=== PATIENT | female | born 1960 | race Caucasian/White ===

== ENCOUNTER 2022-01-13 19:05 | Emergency (ER) | payer BC, SELFPAY ==
[2022-01-13 19:07] VITALS: BP 116/67; BP 138/70; PULSE 84; PULSE 92; RESP 16; RESP 18; TEMP 36.7; TEMP 37.2; O2SAT 96; O2SAT 98; BMI 27.4; BMI 28.9
--- NOTE | 2022-01-13 19:48 | PC.NURSE ---
WOUND CLEANED WITH ROOM TEMPERATURE STERILE WATER AND ANTIMICROBIAL SOAP, PATTED DRY. NON ADHERENT DRESSING PLACED. COVERED WITH DRY 4X4. S/S OF INFECTION EXTENSIVELY REVIEWED WITH PATIENT. PT VERBALIZES UNDERSTANDING. PT AWARE TO HAVE FOLLOW UP WITH PCP ON MONDAY.
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
[2022-01-13 20:43] VITALS: BP 138/70; PULSE 84; RESP 16; TEMP 37.2; O2SAT 98
== END 2022-01-13 20:53 | disposition home or self-care (01) ==
PROVIDERS: Emergency Provider Nurse Practitioner
DX: T24.011A Burn of unspecified degree of right thigh, initial encounter (principal); X08.8XXA Exposure to other specified smoke, fire and flames, initial encounter; Y92.019 Unspecified place in single-family (private) house as the place of occurrence of the external cause; Z23 Encounter for immunization
CPT/HCPCS: 90715; 96372; 99213; G0463

== ENCOUNTER 2024-06-09 19:45 | Emergency (ER) | payer BC, SELFPAY ==
[2024-06-09 19:46] VITALS: BP 109/77; PULSE 109; RESP 16; TEMP 36.8; O2SAT 94; BMI 22.8
--- NOTE | 2024-06-09 19:46 | ED_ITS ---
<Statement entered by Tucker Hernandez MD - 06/09/24 23:44> I was consulted by the JAVY, and we discussed the complexity of the problems being addressed. I approved the treatment and management plan for this patient's care in the emergency department, thus performing a substantive portion of the medical decision making. Tucker Hernandez MD Discharge Plan Disposition Patient Disposition: Home, Self-Care Condition: Good Prescriptions Prescriptions: No Action amoxicillin-pot clavulanate 1 EACH tablet 500 mg PO TID Qty: 21 0RF Referrals Follow up/Referrals: Provider,Basilia, [Primary Care Provider] - See instructions Activity Restrictions/Add. Instructions Additional Instructions/Restrictions: Follow-up with your PCP in 48 hours. For any worsening signs or symptoms return to the emergency department as needed. You may take Tylenol alternating with Motrin every 4 hours as needed for symptomatic relief. Clinical Impressions Clinical Impression: Multiple falls Instructions Patient Instructions: How to Prevent Falls Print Language Print Language: Georgian Discharge ED Provider: Tucker Hernandez General Adult HPI General Chief complaint: Fall Stated complaint: Fall from 4ft, off ramp, no LOC Time Seen by Provider: 06/09/24 19:46 History of Present Illness HPI narrative: Patient presents for evaluation of a reported fall. Patient states that she was walking up and wheelchair ramp at her home and fell striking her head. She reports that she did not lose consciousness but that she has back pain neck pain hip pain coccyx pain. Patient states that she also fell earlier today around 3 PM landing on her coccyx. Again patient suffered the loss of consciousness and has been ambulatory since. Patient states that she falls a lot because she had a stroke earlier this year. She denies chest pain fever chills hemoptysis hematochezia melena Related Data Previous Rx's ?Medication ?Instructions ?Recorded amoxicillin 500 mg-potassium 500 mg PO TID #21 tabs 01/13/22 clavulanate 125 mg tablet Allergies Allergy/AdvReac Type Severity Reaction Status Date / Time meloxicam [From [facility]] Allergy Unknown Verified 01/13/22 20:30 [facility] Disclaimer: The information contained in this section may have been updated after the patient was seen, as this information can be updated by other users. Social History Smoking Status: Current every day smoker alcohol intake: never current occupational status: disabled Travel in the last 8 weeks: None ROS Obtained: Yes Systems reviewed as appropriate & no additional complaints except as documented Physical Exam General General appearance: alert and in no apparent distress Respiratory Respiratory exam: Present normal lung sounds bilaterally Cardiovascular Cardiovascular exam: Present regular rate and normal rhythm Neurological Exam Neurological exam: Present alert, oriented X3 and CN II-XII intact Medical Decision Making Medical Records Medical records reviewed: Yes I reviewed the patient's medical records. Morgan Inquiry Pt receiving controlled substance: No Vital Signs: 06/09/24 19:46 06/09/24 21:37 Temperature 98.3 F 98.2 F Temperature Source Oral Pulse Rate 104 H Pulse Rate [Right Radial] 109 H Respiratory Rate 16 18 Blood Pressure 116/63 Blood Pressure [Right Arm] 109/77 L Blood Pressure Mean [Right Arm] 87 Blood Pressure Source [Right Arm] Automatic Cuff 02 Sat by Pulse Oximetry 94 L Oxygen Delivery Method Room Air Room Air Lab Data Lab results reviewed: Yes I reviewed the patient's lab results. Lab Results 06/09/24 19:51: WBC 9.5, RBC 4.07 L, Hgb 12.9, Hct 41.7, MCV 102.5 H, MCH 31.6 H , MCHC 30.9 L, RDW 14.1, Plt Count 465 H, MPV 8.0, Neut % (Auto) 71.8, Lymph % (Auto) 20.3, [place] % (Auto) 6.4, Eos % (Auto) 1.2, Baso % (Auto) 0.4, Neut # (Auto) 6.8, Lymph # (Auto) 1.9, [place] # (Auto) 0.6, Eos # (Auto) 0.1, Baso # (Auto) 0.0, Sodium 137, Potassium 3.7, Chloride 108 H, Carbon Dioxide 24, Anion Gap 8.7, BUN 16, Creatinine 1.00, Estimated Creat Clear 52, Estimated GFR 56 L, Est GFR ( Amer) 68, Glucose 104 H, Calcium 9.3, Total Bilirubin 0.5, AST 48 H, ALT 45, Alkaline Phosphatase 131 H, Total Protein 7.4, Albumin 4.2, Globulin 3.2, Albumin/Globulin Ratio 1.3, Urine Color Yellow, Urine Appearance Clear, Urine pH 7.5, Ur Specific [place] 1.010, Urine Protein Negative, Urine Glucose (UA) 2+, Urine Ketones Negative, Urine Blood Negative, Urine Nitrate Negative, Urine Bilirubin Negative, Urine Urobilinogen 0.2, Ur Leukocyte Esterase Negative, Urine Opiates Screen Negative, Urine Methadone Screen Negative, Ur Barbituates Screen Negative, Ur Phencyclidine Scrn Negative, Ur Amphetamines Screen Negative, U Benzodiazepines Scrn Negative, Urine Cocaine Screen Negative, U Marijuana (THC) Screen Negative 06/09/24 19:51 06/09/24 19:51 Orders (Tests/Meds): ED MEDICATIONS Discontinued Medications Generic Name Dose Route Start Last Admin Trade Name Luis PRN Reason Stop Dose Admin Acetaminophen 1,000 mg 06/09/24 19:54 06/09/24 20:41 Acetaminophen 1,000mg/100ml Vial IV 06/09/24 19:55 1,000 mg ONCE ONE Administration Lactated Ringer's 1,000 mls @ 999 mls/hr 06/09/24 19:54 06/09/24 20:41 Lactated Ringer's 1000 Ml Bag IV 06/09/24 20:54 999 mls/hr .Q1H1M ONE Administration ORDERS Category Date Time Status CT angio abdomen pelvis Stat Cat Scan 06/09/24 19:[address] angio chest - dissection Stat Cat Scan 06/09/24 19:[address] angio head Stat Cat Scan 06/09/24 19:[address] angio neck Stat Cat Scan 06/09/24 19:[address] bony pelvis Stat Cat Scan 06/09/24 19:[address] cervical spine wo con Stat Cat Scan 06/09/24 19:[address] facial bones wo con Stat Cat Scan 06/09/24 19:[address] head/brain wo con Stat Cat Scan 06/09/24 19:[address] lumbar spine wo con Stat Cat Scan 06/09/24 19:[address] thoracic spine wo con Stat Cat Scan 06/09/24 19:54 Completed CBC w/Auto Diff [Complete Blood Count Auto Diff] Stat Lab 06/09/24 19:51 Completed CMP [Comprehensive Metabolic Panel] Stat Lab 06/09/24 19:51 Completed UA [Urinalysis and Microscopic] Stat Lab 06/09/24 19:51 Results UDS [Drug Screen,Urine] Stat Lab 06/09/24 19:51 Completed Medical Decision Narrative: In summary patient is a 63-year-old female who presents to the emergency department for evaluation of reported fall. Patient is hemodynamically stable upon arrival, afebrile. Physical exam is remarkable for no evidence of visible trauma anywhere although it is objective reports of pain and just about everywhere I touch of her dorsal spine forehead left hip. Patient is neurovascularly intact with no focal neurologic deficits and moves all 4 extremities. Coma score is 15.. Differential diagnosis includes contusion versus fracture versus intercranial bleed etc. Initial workup will be conducted with hematologic labs CT scan without contrast of the head C-spine T-spine L- spine lumbar spine and CTA of the head neck chest abdomen pelvis and bony pelvis. Urinalysis urine drug screen.. Initial interventions include acetaminophen crystalloid bolus. Initial workup reviewed by me shows her hematologic labs are nonactionable urinalysis is bland and urine drug screen is negative and my informal interpretation of her imaging shows no acute fracture or acute process prior to radiology read on all of her imaging.. Upon repeat evaluation remains with a Glascow coma score 15 is ambulatory with her cane tolerating oral intake.. Given this patient is appropriate for discharge with instructions to follow-up with PCP this week for recheck. Patient given strict return precautions. Critical Care Critical Care Time Critical Care Time: No
--- NOTE | 2024-06-09 19:54 | CT_ITS ---
PROCEDURE INFORMATION: Exam: CT Head Without Contrast Exam date and time: 06/09/2024 8:20 PM Age: 63 years old Clinical indication: Injury or trauma; Fall; Additional info: Trauma, critical injury suspected TECHNIQUE: Imaging protocol: Computed tomography of the head without contrast. Radiation optimization: All CT scans at this facility use at least one of these dose optimization techniques: automated exposure control; mA and/or kV adjustment per patient size (includes targeted exams where dose is matched to clinical indication); or iterative reconstruction. COMPARISON: CT CERVICAL SPINE WO CON 06/09/2024 8:20 PM FINDINGS: Brain: Encephalomalacia and gliosis left occipital lobe consistent with old infarct. There are moderate bilateral periventricular low-attenuation white matter foci consistent with cerebral small vessel disease. Cerebral ventricles: No ventriculomegaly. Paranasal sinuses: Visualized sinuses are unremarkable. No fluid levels. Mastoid air cells: Partial opacification of the left mastoid air cells and middle ear cavity. Could be related to pre-existing sinus disease. Bones: No definite fractures. Soft tissues: Unremarkable. IMPRESSION: 1. Partial opacification of the left mastoid air cells and middle ear cavity. Could be related to pre-existing sinus disease. No definite fractures. 2. Encephalomalacia and gliosis left occipital lobe consistent with old infarct. 3. No acute intracranial process is identified.
--- NOTE | 2024-06-09 19:54 | CT_ITS ---
PROCEDURE INFORMATION: Exam: CTA Neck With Contrast Exam date and time: 06/09/2024 8:34 PM Age: 63 years old Clinical indication: Injury or trauma; Fall; Additional info: Trauma, critical injury suspected TECHNIQUE: Imaging protocol: Computed tomographic angiography of the neck with contrast. Exam focused on the cervical segments of the vasculature. 3D rendering (Not supervised by radiologist): MIP and/or 3D reconstructed images were created by the technologist. Radiation optimization: All CT scans at this facility use at least one of these dose optimization techniques: automated exposure control; mA and/or kV adjustment per patient size (includes targeted exams where dose is matched to clinical indication); or iterative reconstruction. Contrast material: ISOVUE; Contrast volume: 80 ml; Contrast route: INTRAVENOUS (IV); COMPARISON: CT ANGIO NECK 06/09/2024 8:34 PM FINDINGS: Right common carotid artery: No stenosis. No dissection or occlusion. Right internal carotid artery: No stenosis of the extracranial segment. No dissection or occlusion. Right external carotid artery: No occlusion or stenosis of the origin. Left common carotid artery: No stenosis. No dissection or occlusion. Left internal carotid artery: No stenosis of the extracranial segment. No dissection or occlusion. Left external carotid artery: No occlusion or stenosis of the origin. Right vertebral artery: No stenosis. No dissection or occlusion. Left vertebral artery: No stenosis. No dissection or occlusion. Soft tissues: Normal. No significant soft tissue swelling. Bones/joints: No acute fracture. IMPRESSION: No stenosis or occlusion. REFERENCES: NASCET CRITERIA. The degree of stenosis in the cervical segment of the internal carotid artery is based on NASCET criteria. Normal is no stenosis. Mild is less than 50% stenosis. Moderate is 50-69% stenosis. Severe is 70% to 99% stenosis. Total occlusion is no detectable patent lumen.
--- NOTE | 2024-06-09 19:54 | CT_ITS ---
PROCEDURE INFORMATION: Exam: CTA Chest With Contrast Exam date and time: 06/09/2024 8:37 PM Age: 63 years old Clinical indication: Injury or trauma; Fall; Additional info: Trauma, critical injury suspected TECHNIQUE: Imaging protocol: Computed tomographic angiography of the chest with contrast. Exam focused on the arteries. 3D rendering (Not supervised by radiologist): MIP and/or 3D reconstructed images were created by the technologist. Radiation optimization: All CT scans at this facility use at least one of these dose optimization techniques: automated exposure control; mA and/or kV adjustment per patient size (includes targeted exams where dose is matched to clinical indication); or iterative reconstruction. Contrast material: ISOVUE; Contrast volume: 80 ml; Contrast route: INTRAVENOUS (IV); COMPARISON: CT ANGIO ABDOMEN PELVIS 06/09/2024 8:37 PM FINDINGS: Pulmonary arteries: Normal. No pulmonary emboli. Aorta: Unremarkable. No aortic aneurysm. No aortic dissection. Lungs: Unremarkable. No consolidation. No masses. Pleural spaces: Unremarkable. No pneumothorax. No pleural effusion. Heart: Unremarkable. No cardiomegaly. No pericardial effusion. Lymph nodes: Unremarkable. No enlarged lymph nodes. Bones/joints: Old left 9th rib fracture. No acute fracture. Soft tissues: Unremarkable. IMPRESSION: No acute findings.
--- NOTE | 2024-06-09 19:54 | CT_ITS ---
PROCEDURE INFORMATION: Exam: CT Cervical Spine Without Contrast Exam date and time: 06/09/2024 8:20 PM Age: 63 years old Clinical indication: Injury or trauma; Fall; Additional info: Trauma, critical injury suspected TECHNIQUE: Imaging protocol: Computed tomography of the cervical spine without contrast. Radiation optimization: All CT scans at this facility use at least one of these dose optimization techniques: automated exposure control; mA and/or kV adjustment per patient size (includes targeted exams where dose is matched to clinical indication); or iterative reconstruction. COMPARISON: CT CERVICAL SPINE WO CON 06/09/2024 8:20 PM FINDINGS: Bones: No acute fracture. Normal alignment. No significant disc bulge or herniation. No severe spinal canal stenosis. No significant neural foraminal narrowing. Mastoid air cells: Partially visualized left mastoid air cells consistent with sinus disease. Auditory system: Mucosal thickening within the middle ear cavity . Lungs: Lung apices are normal. Soft tissues: Unremarkable. IMPRESSION: 1. Partially visualized left mastoid air cells consistent with sinus disease. Mucosal thickening within the middle ear cavity . 2. No acute abnormalities are identified.
--- NOTE | 2024-06-09 19:54 | CT_ITS ---
PROCEDURE INFORMATION: Exam: CTA Abdomen and Pelvis With Contrast Exam date and time: 06/09/2024 8:37 PM Age: 63 years old Clinical indication: Injury or trauma; Fall; Additional info: Trauma, critical injury suspected TECHNIQUE: Imaging protocol: Computed tomographic angiography of the abdomen and pelvis with contrast. Exam focused on the arteries. 3D rendering (Not supervised by radiologist): MIP and/or 3D reconstructed images were created by the technologist. Radiation optimization: All CT scans at this facility use at least one of these dose optimization techniques: automated exposure control; mA and/or kV adjustment per patient size (includes targeted exams where dose is matched to clinical indication); or iterative reconstruction. Contrast material: ISOVUE; Contrast volume: 80 ml; Contrast route: INTRAVENOUS (IV); COMPARISON: CT ANGIO ABDOMEN PELVIS 06/09/2024 8:37 PM FINDINGS: Aorta: No aortic aneurysm. No aortic dissection. Mild atherosclerotic calcification. Celiac trunk and mesenteric arteries: No occlusion or significant stenosis. Renal arteries: No occlusion or significant stenosis. Right iliac arteries: No occlusion or significant stenosis. Mild atherosclerotic calcification. Left iliac arteries: No occlusion or significant stenosis. Mild atherosclerotic calcification. Liver: Fatty infiltration. Measures 19 cm. No mass. Gallbladder and biliary ducts: Gallbladder not visualized. Pancreas: Unremarkable. No mass. No ductal dilation. Spleen: Unremarkable. No splenomegaly. Adrenal glands: Unremarkable. No mass. Kidneys and ureters: 0.7 cm left renal cyst. No solid mass. No hydronephrosis. Stomach and bowel: Unremarkable. No obstruction. No mucosal thickening. Appendix: Not visualized. Intraperitoneal space: Unremarkable. No free air. No significant fluid collection. Lymph nodes: Unremarkable. No enlarged lymph nodes. Urinary bladder: Unremarkable. No mass. Reproductive: Unremarkable as visualized. Bones/joints: No acute fracture. Soft tissues: Unremarkable. IMPRESSION: 1. Unremarkable CTA. 2. Hepatomegaly with fatty infiltration.
--- NOTE | 2024-06-09 19:54 | CT_ITS ---
PROCEDURE INFORMATION: Exam: CT Thoracic Spine Without Contrast Exam date and time: 06/09/2024 8:25 PM Age: 63 years old Clinical indication: Injury or trauma; Fall; Additional info: Trauma, critical injury suspected TECHNIQUE: Imaging protocol: Computed tomography of the thoracic spine without contrast. Radiation optimization: All CT scans at this facility use at least one of these dose optimization techniques: automated exposure control; mA and/or kV adjustment per patient size (includes targeted exams where dose is matched to clinical indication); or iterative reconstruction. COMPARISON: CT THORACIC SPINE WO CON 06/09/2024 8:25 PM FINDINGS: Bones/joints: No acute fracture. Normal alignment. No significant disc bulge or herniation. No severe spinal canal stenosis. No significant neural foraminal narrowing. Soft tissues: Unremarkable. IMPRESSION: Unremarkable CT Spine.
--- NOTE | 2024-06-09 19:54 | CT_ITS ---
PROCEDURE INFORMATION: Exam: CTA Head With Contrast, Arteriography Exam date and time: 06/09/2024 8:34 PM Age: 63 years old Clinical indication: Injury or trauma; Fall; Additional info: Trauma, critical injury suspected TECHNIQUE: Imaging protocol: Computed tomographic angiography of the head with contrast. Exam focused on the arteries. 3D rendering (Not supervised by radiologist): MIP and/or 3D reconstructed images were created by the technologist. Radiation optimization: All CT scans at this facility use at least one of these dose optimization techniques: automated exposure control; mA and/or kV adjustment per patient size (includes targeted exams where dose is matched to clinical indication); or iterative reconstruction. Contrast material: ISOVUE; Contrast volume: 80 ml; Contrast route: INTRAVENOUS (IV); COMPARISON: CT HEAD/BRAIN WO CON 06/09/2024 8:20 PM FINDINGS: ANTERIOR CIRCULATION: Right internal carotid artery: Intracranial segment is patent with no significant stenosis. No aneurysm. Right middle cerebral artery: No occlusion or significant stenosis. No aneurysm. Right anterior cerebral artery: No occlusion or significant stenosis. No aneurysm. Left internal carotid artery: Intracranial segment is patent with no significant stenosis. No aneurysm. Left middle cerebral artery: No occlusion or significant stenosis. No aneurysm. Left anterior cerebral artery: No occlusion or significant stenosis. No aneurysm. POSTERIOR CIRCULATION: Right vertebral artery: No occlusion or significant stenosis. No aneurysm. Left vertebral artery: No occlusion or significant stenosis. No aneurysm. Basilar artery: No occlusion or significant stenosis. No aneurysm. Right posterior cerebral artery: No occlusion or significant stenosis. No aneurysm. Left posterior cerebral artery: No occlusion or significant stenosis. No aneurysm. Brain: No definite mass, mass effect, or midline shift. Old infarct left occipital lobe Cerebral ventricles: No ventriculomegaly. Bones/joints: Unremarkable. No acute fracture. Soft tissues: Unremarkable. IMPRESSION: No large vessel stenosis or occlusion.
--- NOTE | 2024-06-09 19:54 | CT_ITS ---
PROCEDURE INFORMATION: Exam: CT Lumbar Spine Without Contrast Exam date and time: 06/09/2024 8:27 PM Age: 63 years old Clinical indication: Injury or trauma; Fall; Additional info: Trauma, critical injury suspected TECHNIQUE: Imaging protocol: Computed tomography of the lumbar spine without contrast. Radiation optimization: All CT scans at this facility use at least one of these dose optimization techniques: automated exposure control; mA and/or kV adjustment per patient size (includes targeted exams where dose is matched to clinical indication); or iterative reconstruction. COMPARISON: CT LUMBAR SPINE WO CON 06/09/2024 8:27 PM FINDINGS: Bones/joints: No acute fracture. Normal alignment. Multilevel degenerative disc and joint space changes most pronounced at L4/5 and L5/S1. Osteopenia. Vertebral bodies grossly preserved. Soft tissues: Unremarkable. IMPRESSION: No acute findings.
--- NOTE | 2024-06-09 19:56 | CT_ITS ---
PROCEDURE INFORMATION: Exam: CT Maxillofacial Without Contrast Exam date and time: 06/09/2024 8:23 PM Age: 63 years old Clinical indication: Injury or trauma; Fall; Additional info: Trauma, critical injury suspected TECHNIQUE: Imaging protocol: Computed tomography of the face without contrast. Radiation optimization: All CT scans at this facility use at least one of these dose optimization techniques: automated exposure control; mA and/or kV adjustment per patient size (includes targeted exams where dose is matched to clinical indication); or iterative reconstruction. COMPARISON: CT HEAD/BRAIN WO CON 06/09/2024 8:20 PM FINDINGS: Orbital cavities: Orbits are normal. Globes are unremarkable. Paranasal sinuses: Normal. No air-fluid levels. Bones: No acute fracture. Soft tissues: Unremarkable. IMPRESSION: No acute findings.
--- NOTE | 2024-06-09 19:56 | CT_ITS ---
PROCEDURE INFORMATION: Exam: CT Pelvis Without Contrast, Skeleton Exam date and time: 06/09/2024 8:29 PM Age: 63 years old Clinical indication: Injury or trauma; Fall; Additional info: Trauma, critical injury suspected TECHNIQUE: Imaging protocol: Computed tomography of the pelvis without contrast. Exam focused on the skeleton. Radiation optimization: All CT scans at this facility use at least one of these dose optimization techniques: automated exposure control; mA and/or kV adjustment per patient size (includes targeted exams where dose is matched to clinical indication); or iterative reconstruction. COMPARISON: CT LUMBAR SPINE WO CON 06/09/2024 8:27 PM FINDINGS: Bones/joints: Unremarkable. No acute fracture. No dislocation. Degenerative changes of both hips, sacroiliac joints and lumbosacral spine. Osteopenia. Soft tissues: Unremarkable. IMPRESSION: No acute findings.
[2024-06-09 20:06] LABS: Chloride 108 mmol/L (98-107)
[2024-06-09 20:07] LABS: Albumin Level 4.2 g/dl (3.5-5.0); Potassium 3.7 mmoL/L (3.5-5.1); Sodium 137 mmol/L (136-145)
[2024-06-09 20:09] LABS: Alanine Aminotransferase 45 U/L (12-78); Alkaline Phosphatase 131 U/L (38-126); Anion Gap 8.7 mEq/L (5-15); Aspartate Amino Transferase 48 U/L (14-36); Bilirubin,Total 0.5 mg/dl (0.2-1.3); Blood Urea Nitrogen 16 mg/dl (7-17); Carbon Dioxide 24 mmol/L (22.0-30.0); Creatinine Clearance Estimated 52 mL/min (50-200); Estimated Glomerular Filt Rate 56 ml/min (>60); GFR (African American) 68 ML/MIN (>60)
--- NOTE | 2024-06-09 20:09 | PC.NURSE ---
pt out of room with Rad for CT
[2024-06-09 20:10] LABS: Albumin/Globulin Ratio 1.3 (1.1-1.8); Calcium 9.3 mg/dl (8.4-10.2); Globulin 3.2 g/dL (1.3-3.2); Glucose 104 mg/dl (74-100); Total Protein,Serum 7.4 g/dl (6.3-8.2)
[2024-06-09 20:21] LABS: Basophils % 0.4 % (0.1-2.0); Eosinophils # 0.1 K/mm3 (0.0-0.4); Eosinophils % 1.2 % (0.1-12.0); Hematocrit 41.7 % (37.0-47.0); Hemoglobin 12.9 g/dL (12.2-16.2); Lymphocytes # 1.9 K/mm3 (0.7-4.5); Lymphocytes % 20.3 % (10-50); Mean Corpuscular HGB Conc 30.9 g/dL (31.8-35.4); Mean Corpuscular Hemoglobin 31.6 pg (27.0-31.2); Mean Corpuscular Volume 102.5 fl (81-99); Monocytes # 0.6 K/mm3 (0.1-1.0); Monocytes % 6.4 % (1.7-9.3); Neutrophils # 6.8 K/mm3 (1.8-7.8); Neutrophils % 71.8 % (37.0-80.0); Platelet Count 465 K/mm3 (142-424); Red Blood Count 4.07 M/mm3 (4.20-5.40); Red Cell Distribution Width 14.1 % (11.5-17.5); White Blood Count 9.5 K/mm3 (4.8-10.8)
--- NOTE | 2024-06-09 20:40 | PC.NURSE ---
pt back in room from CT
[2024-06-09] MEDS: ACETAMINOPHEN 1,000MG/100ML VIAL 1000 MG IV (20:41)
[2024-06-09] MEDS: LACTATED RINGERS 1000ML 1,000 ML 999 ML IV (20:41)
[2024-06-09 21:09] LABS: Microscopic, Urine URINE MICROSCOPIC (MICROSCOPIC)
[2024-06-09 21:13] LABS: Appearance,Urine CLEAR (Clear); Bilirubin,Urine Negative (Negative); Blood, Urine Negative (Negative); Color,Urine YELLOW (Yellow); Glucose,Urine (UA) 2+ (Negative); Ketones,Urine Negative (Negative); Leukocyte Esterase,Urine Negative (Negative); Nitrate,Urine Negative (Negative); PH,Urine 7.5 (5.0-8.5); Protein,Urine Negative (Negative); Urobilinogen,Urine 0.2 EU/dl (0.2)
[2024-06-09 21:23] LABS: Barbiturates Screen,Urine Negative ng/ml (<200)
[2024-06-09 21:24] LABS: Amphetamine/Metha Screen,Urine Negative ng/ml (<1000); Benzodiazepines Screen,Urine Negative ng/ml (<200)
[2024-06-09 21:25] LABS: Cannabinoid Screen,Urine Negative ng/ml (<50); Cocaine Screen,Urine Negative ng/ml (<300)
[2024-06-09 21:26] LABS: Methadone Screen,Urine Negative ng/ml (<300)
[2024-06-09 21:27] LABS: Opiate Screen,Urine Negative ng/ml (<300); Phencyclidine Screen,Urine Negative ng/ml (<25)
[2024-06-09 21:37] VITALS: BP 116/63; PULSE 104; RESP 18; TEMP 36.8; O2SAT 95
[2024-06-09 23:20] LABS: Bacteria,Urine Trace /lpf
== END 2024-06-09 21:51 | disposition home or self-care (01) ==
PROVIDERS: Physician Assistant; Emergency Provider Emergency Medicine
DX: M54.2 Cervicalgia (principal); M54.9 Dorsalgia, unspecified; M25.559 Pain in unspecified hip; R29.6 Repeated falls; W19.XXXA Unspecified fall, initial encounter
CPT/HCPCS: 70450; 70486; 70496; 70498; 71275; 72125; 72128; 72131; 72192; 74174; 80053; 80307; 81001; 85025; 96361; 96374; 99285; J0131; J7120

== ENCOUNTER 2024-06-10 11:35 | Emergency (ER) | payer MEDICAID, SELFPAY ==
[2024-06-10 11:38] VITALS: BP 122/65; PULSE 77; RESP 18; TEMP 36.3; O2SAT 100; BMI 22.8
--- NOTE | 2024-06-10 12:00 | PC.NURSE ---
MD aware of pt symptoms and prior visit last night
--- NOTE | 2024-06-10 14:50 | HMH.EDGENADL ---
Discharge Plan Disposition Patient Disposition: Home, Self-Care Condition: Good Prescriptions Prescriptions: No Action amoxicillin-pot clavulanate 1 EACH tablet 500 mg PO TID Qty: 21 0RF Referrals Follow up/Referrals: Melissa Gore [Primary Care Provider] - See instructions Activity Restrictions/Add. Instructions Additional Instructions/Restrictions: As we discussed you need to have your primary care physician refer you to Dr. Callaway here at [facility] for ongoing headache management. As we also discussed all of your imaging and lab work yesterday revealed no trauma or acute fracture or acute problem including blood clot in your brain. You may take Tylenol and/or alternating with Motrin as needed for symptomatic treatment of your chronic pain. Return to ER for any worsening signs or symptoms as needed. Clinical Impressions Clinical Impression: Chronic headache Qualifiers: Headache type: unspecified Intractability: not intractable Qualified Code(s): R51.9 - Headache, unspecified Instructions Patient Instructions: DI for Chronic Pain -- Adult Print Language Print Language: Belarusian Discharge ED Provider: Tucker Hernandez General Adult HPI <ISIDRO Hernandez - Last Filed: 06/10/24 17:23> General Chief complaint: Weakness Stated complaint: AO-06/09, 2 falls, pain in back, hips, legs, head Time Seen by Provider: 06/10/24 14:50 Mode of Arrival: Wheelchair Source of Information: Patient Limitations: No Limitations Description of Symptoms (Recalled from ER Triage Doc. by RN): c/o not feeling right in her head, states it is swelling in her head like in her eyes. states that her balance is worse that normal. states that she fell multiple times yesterday, and was seen her in the ER post those falls. Reports that she just doesnt feel right. c/o back pain and bilateral knee pain. She states that she takes lortabs but she is out and dont see her pain doctor untill next week. History of Present Illness HPI narrative: Patient presents for evaluation of headache and head swelling. I saw and examined this patient yesterday after reported fall at her home where she reportedly struck her head. Patient was imaged with both plain film and contrasted and CTAs of the head neck chest and all of the dorsal spine. No acute fracture thrombus bleed or other injury was found during her workup. Patient reports that she is still having headache and that her head is swelling . Patient gives an invasive history that changes frequently during her conversation. Today she tells me that she fell 3 times yesterday yesterday she told me that she fell twice. Neither time that she told me about that she said that she lost consciousness nor had any focal neurologic deficits. Patient reportedly had a stroke earlier this year and states that she has memory difficulty. She initially told me that she did not remember talking to me or being examined by me during 1 part of our conversation. Then she stated that she does remember me talking to her but then does not remember examining her. Then she tells me she remembers everything about her visit yesterday. Regarding her headache she describes it as a migraine for which she has migraine medicine for but has not taking. She describes her headache is everywhere in her head. She denies actually photophobia phonophobia or aura. Patient tells me she is having acute neck pain however she then tells me that she has chronic back pain and pinched nerves. She is denying any change of level of consciousness intractable nausea vomiting or focal neurologic deficits. Patient also reports that she has not fallen in the interval since she left the emergency department yesterday. Related Data Previous Rx's ?Medication ?Instructions ?Recorded amoxicillin 500 mg-potassium 500 mg PO TID #21 tabs 01/13/22 clavulanate 125 mg tablet Allergies Allergy/AdvReac Type Severity Reaction Status Date / Time meloxicam [From [facility]] Allergy Unknown Verified 01/13/22 20:30 [facility] <ISIDRO Hernandez - Last Filed: 06/10/24 17:23> [facility] Disclaimer: The information contained in this section may have been updated after the patient was seen, as this information can be updated by other users. Social History (Updated 06/09/24 @ 22:50 by ISIDRO Hernandez) Smoking Status: Current every day smoker alcohol intake: never current occupational status: disabled Travel in the last 8 weeks: None <ISIDRO Hernandez - Last Filed: 06/10/24 17:23> ROS Obtained: Yes Systems reviewed as appropriate & no additional complaints except as documented Physical Exam <ISIDRO Hernandez - Last Filed: 06/10/24 17:23> General General appearance: alert and in no apparent distress Neck Neck exam: Absent lymphadenopathy Respiratory Respiratory exam: Present normal lung sounds bilaterally Cardiovascular Cardiovascular exam: Present regular rate Neurological Exam Neurological exam: Present alert, oriented X3 and CN II-XII intact Medical Decision Making <ISIDRO Hernandez - Last Filed: 06/10/24 17:23> Medical Records Medical records reviewed: Yes I reviewed the patient's medical records. Morgan Inquiry Pt receiving controlled substance: No Vital Signs: 06/10/24 11:38 Temperature 97.4 F L Temperature Source Oral Pulse Rate [Left Radial] 77 Respiratory Rate 18 Blood Pressure [Right Arm] 122/65 Blood Pressure Mean [Right Arm] 84 Blood Pressure Source [Right Arm] Automatic Cuff Blood Pressure Position [Right Arm] Sitting 02 Sat by Pulse Oximetry 100 Oxygen Delivery Method Room Air Lab Data Lab results reviewed: Yes I reviewed the patient's lab results. Orders (Tests/Meds): ED MEDICATIONS Discontinued Medications Generic Name Dose Route Start Last Admin Trade Name Freq PRN Reason Stop Dose Admin Acetaminophen 1,000 mg 06/10/24 15:43 06/10/24 16:18 Acetaminophen 1,000mg/100ml Vial IV 06/10/24 15:44 1,000 mg ONCE ONE Administration Dexamethasone Sodium Phosphate 10 mg 06/10/24 15:43 06/10/24 16:18 Dexamethasone 4mg/Ml 5ml Mdv IV 06/10/24 15:44 10 mg ONCE ONE Administration Lactated Ringer's 1,000 mls @ 999 mls/hr 06/10/24 15:45 06/10/24 16:19 Lactated Ringer's 1000 Ml Bag IV 06/10/24 16:45 999 mls/hr .Q1H1M ONE Administration Ketorolac Tromethamine 15 mg 06/10/24 15:43 06/10/24 16:19 Ketorolac 30mg/Ml Vial IV 06/10/24 15:44 15 mg ONCE ONE Administration Medical Decision Narrative: In summary patient is a 63-year-old female who presents to the emergency department for evaluation of chronic headache. Patient is hemodynamically stable upon arrival, afebrile. Physical exam is remarkable for a Glascow coma score of 15, cranial nerves intact grossly to exam, patient has no visible trauma from yesterday after reportedly striking her forehead. Laboratory data was reviewed with the patient and so was her imaging both yesterday and again today. Patient however states that her head is swelling and that her ankles are swelling although there is no evidence of such on physical exam.. Differential diagnosis includes chronic headache versus short-term memory issues versus chronic headache. Initial workup was considered however patient was evaluated extensively with trauma scans and laboratory work yesterday for any possible intracranial injury cervical spine injury, TL spine injury and none was found. Given this I had a long interactive discussion with the patient regarding her findings again today given that she states that she has memory issues however her chief complaint migrated throughout our discussion from headache to neck pain to bilateral ankle swelling to not having a cane to walk through (however her cane was right beside her in the room). Again I asked the patient how I could assist her as all of her workup yesterday was unrevealing for any acute cause of her chronic headache. Patient asked if I thought she was crazy. I answered that I did not and that I was just reiterating what we had already discussed as she reportedly did not remember our conversation yesterday. At that point I asked the patient again how I could assist her today and offered her a headache cocktail which she has accepted. Upon reevaluation patient has complete cessation of her headache, she is tolerating oral intake. We have gotten her an appropriate cane with a 4 leg base. That she is appropriate for discharge with follow-up with her PCP this week. <Tucker Hernandez MD - Last Filed: 06/10/24 17:36> Vital Signs: 06/10/24 11:38 Temperature 97.4 F L Temperature Source Oral Pulse Rate [Left Radial] 77 Respiratory Rate 18 Blood Pressure [Right Arm] 122/65 Blood Pressure Mean [Right Arm] 84 Blood Pressure Source [Right Arm] Automatic Cuff Blood Pressure Position [Right Arm] Sitting 02 Sat by Pulse Oximetry 100 Oxygen Delivery Method Room Air Orders (Tests/Meds): ED MEDICATIONS Discontinued Medications Generic Name Dose Route Start Last Admin Trade Name Freq PRN Reason Stop Dose Admin Acetaminophen 1,000 mg 06/10/24 15:43 06/10/24 16:18 Acetaminophen 1,000mg/100ml Vial IV 06/10/24 15:44 1,000 mg ONCE ONE Administration Dexamethasone Sodium Phosphate 10 mg 06/10/24 15:43 06/10/24 16:18 Dexamethasone 4mg/Ml 5ml Mdv IV 06/10/24 15:44 10 mg ONCE ONE Administration Lactated Ringer's 1,000 mls @ 999 mls/hr 06/10/24 15:45 06/10/24 16:19 Lactated Ringer's 1000 Ml Bag IV 06/10/24 16:45 999 mls/hr .Q1H1M ONE Administration Ketorolac Tromethamine 15 mg 06/10/24 15:43 06/10/24 16:19 Ketorolac 30mg/Ml Vial IV 06/10/24 15:44 15 mg ONCE ONE Administration Medical Decision Narrative: In summary patient is a 63-year-old female who presents to the emergency department for evaluation of chronic headache. Patient is hemodynamically stable upon arrival, afebrile. Physical exam is remarkable for a Glascow coma score of 15, cranial nerves intact grossly to exam, patient has no visible trauma from yesterday after reportedly striking her forehead. Laboratory data was reviewed with the patient and so was her imaging both yesterday and again today. Patient however states that her head is swelling and that her ankles are swelling although there is no evidence of such on physical exam.. Differential diagnosis includes chronic headache versus short-term memory issues versus chronic headache. Initial workup was considered however patient was evaluated extensively with trauma scans and laboratory work yesterday for any possible intracranial injury cervical spine injury, TL spine injury and none was found. Given this I had a long interactive discussion with the patient regarding her findings again today given that she states that she has memory issues however her chief complaint migrated throughout our discussion from headache to neck pain to bilateral ankle swelling to not having a cane to walk through (however her cane was right beside her in the room). Again I asked the patient how I could assist her as all of her workup yesterday was unrevealing for any acute cause of her chronic headache. Patient asked if I thought she was crazy. I answered that I did not and that I was just reiterating what we had already discussed as she reportedly did not remember our conversation yesterday. At that point I asked the patient again how I could assist her today and offered her a headache cocktail which she has accepted. Upon reevaluation patient has complete cessation of her headache, she is tolerating oral intake. We have gotten her an appropriate cane with a 4 leg base. That she is appropriate for discharge with follow-up with her PCP this week. I was consulted by the JAVY, and we discussed the complexity of the problems being addressed. I approved the treatment and management plan for this patient's care in the emergency department, thus performing a substantive portion of the medical decision making. I had prolonged decision-making discussion with patient at bedside. Repeat imaging is unnecessary given that it was performed yesterday and all the areas that are causing patient's symptoms. Patient was given headache cocktail with significant resolution of symptoms and was amatory bedside and is appropriate for outpatient management at this time. Tucker Hernandez MD Critical Care <ISIDRO Hernandez - Last Filed: 06/10/24 17:23> Critical Care Time Critical Care Time: No
--- NOTE | 2024-06-10 15:32 | PC.NURSE ---
and Armani at bs to discuss pt complaint and the care that is given today
[2024-06-10] MEDS: ACETAMINOPHEN 1,000MG/100ML VIAL 1000 MG IV (16:18)
[2024-06-10] MEDS: DEXAMETHASONE 4MG/ML 5ML MDV 10 MG IV (16:18)
[2024-06-10] MEDS: LACTATED RINGERS 1000ML 1,000 ML 999 ML IV (16:19)
[2024-06-10] MEDS: KETOROLAC 30MG/ML VIAL 15 MG IV (16:19)
[2024-06-10 17:36] VITALS: BP 125/70; PULSE 89; RESP 16; TEMP 36.3; O2SAT 98
== END 2024-06-10 17:37 | disposition home or self-care (01) ==
PROVIDERS: Emergency Provider Emergency Medicine; PCP Internal Medicine
DX: R51.9 Headache, unspecified (principal); F17.210 Nicotine dependence, cigarettes, uncomplicated
CPT/HCPCS: 96361; 96374; 96375; 99284; J0131; J1100; J1885; J7120

== ENCOUNTER 2024-10-22 08:52 | Outpatient (RCR) | payer MEDICAID, SELFPAY | END 2024-10-22 23:59 | disposition home or self-care (01) | LOC: PT 08:52 | PROVIDERS: Visit Provider Internal Medicine | DX: R29.6 Repeated falls (principal) | CPT/HCPCS: 97163 ==

== ENCOUNTER 2024-11-24 11:14 | Emergency (ER) | payer MEDICAID, SELFPAY ==
[2024-11-24] VITALS (12 sets, daily range): BP systolic 93–135; BP diastolic 57–81; PULSE 58–81; RESP 12–22; TEMP 36.7–36.8; O2SAT 94–100; BMI 25.7
--- NOTE | 2024-11-24 11:20 | ECG_ITS ---
APPROVED REPORT Exam: Resting ECG HR:59 bpm ECG Measurements Heart Rate 59 AXES NJ 144 P 72 QRSd 80 QRS 65 QT 400 T 71 QTc 398 Conclusion SINUS BRADYCARDIA BORDERLINE ECG UNCONFIRMED REPORT Electronically signed by : DAISY SCHWARTZ, 11/25/2024 23:13:21
--- NOTE | 2024-11-24 11:30 | ED_ITS ---
Discharge Plan Disposition Patient Disposition: Home, Self-Care Chief Complaint: Chest Pain Prescriptions Prescriptions: No Action amoxicillin-pot clavulanate 1 EACH tablet 500 mg PO TID Qty: 21 0RF Referrals Follow up/Referrals: Provider,Basilia, [Referring] - See instructions Simone Woods MD [Staff Physician] - See instructions Activity Restrictions/Add. Instructions Additional Instructions/Restrictions: At this time it was felt you are safe to be discharged home. If new or worsening symptoms please do not hesitate to return the emergency department. As discussed please follow-up with your neurologist (headache doctor) later this month. Follow-up with your financial planning analyst next week and if you are unable to please call and schedule appoint with Dr. Woods. Clinical Impressions Clinical Impression: Chest pain, Chronic headache Print Language Print Language: Turkmen Discharge ED Provider: Tucker Hernandez General Chief Complaint: Chest Pain Stated Complaint: CP Time Seen by Provider: 11/24/24 11:20 Mode of Arrival: EMS Source of Information: Patient and EMS Limitations: No Limitations Description of Symptoms (Recalled from ER Triage Doc. by RN): chest pain since yesterday. hx of afib and stroke. History of Present Illness HPI narrative: Patient is a 64-year-old female with past medical history of CVA with left-sided residual, atrial fibrillation on anticoagulation who presents emergency department for evaluation of chest pain. Onset was acute, occurring since yesterday morning, persistent, substernal and right-sided. She has had intermittent chest pain similar to this nature since her stroke 12 months ago and follows with cardiology from [facility]. No reports of stents. No abdominal pain. Patient was transported via EMS and received 3 sublingual nitros, aspirin 324 mg, crystalloid bolus, morphine prior to arrival. No other acute complaints at this time. Please note that above description of symptoms, in this electronic medical record under categorization of recalled from ER triage doctor by RN are reflective of an initial nursing assessment, however, is not reflective of my full history and physical exam that was personally taken and clarified. Consequentially, this preceding description of symptoms, which may include the patient's categorized chief complaint in the EMR, do not reflect my personal clinical impression, and the ultimate description of history of present illness and patient stated complaints should be deferred to this section of the note. Unless stated otherwise or congruent with this section of the note, additional signs, symptoms, or incongruence should be interpreted as inaccurate with my clinical impression. Related Data Previous Rx's ?Medication ?Instructions ?Recorded amoxicillin 500 mg-potassium 500 mg (0.8 x 500-125 mg) PO TID 01/13/22 clavulanate 125 mg tablet #21 tabs Allergies Allergy/AdvReac Type Severity Reaction Status Date / Time meloxicam (From M[facility]) Allergy Unknown Verified 01/13/22 20:30 [facility] Disclaimer: The information contained in this section may have been updated after the patient was seen, as this information can be updated by other users. Social History (Updated 06/09/24 @ 22:50 by ISIDRO Hernandez) Smoking Status: Current every day smoker alcohol intake: never current occupational status: disabled Travel in the last 8 weeks: None Other Medical History Have you received the Flu Vaccine for this season: No Have you received the Pneumonia Vaccine: No ROS Obtained: Yes Systems reviewed as appropriate & no additional complaints except as documented Physical Exam General General appearance: alert and in no apparent distress Head Head exam: atraumatic and normocephalic Eye Eye exam: Present PERRL ENT ENT exam: Present mucous membranes moist Neck Neck exam: Present normal inspection Chest Chest inspection: Present normal inspection and symmetric chest wall rise Respiratory Respiratory exam: Present normal lung sounds bilaterally; Absent respiratory distress or wheezes Cardiovascular Cardiovascular exam: Present regular rate and normal rhythm Abdominal Exam Abdominal exam: Present soft; Absent tenderness Extremities Exam Extremities exam: Present normal inspection Neurological Exam Neurological exam: Present alert Psychiatric Psychiatric exam: Present normal affect Skin Skin exam: Present warm and dry HEART Score HEART Score HEART Score assessment performed?: Yes History (anamnesis): Moderately suspicious ECG: Normal Age: 45-65 years Risk factors: No known risk factors Troponin: </= normal limit HEART Score: 2 Critical Care Critical Care Time Critical Care Time: No Medical Decision Making Morgan Inquiry Pt receiving controlled substance: No Vital Signs Vital Signs: 11/24/24 11:14 11/24/24 11:18 11/24/24 11:26 Temperature 98.2 F Temperature Source Oral Pulse Rate 62 58 L Pulse Rate [Right] 65 Respiratory Rate 16 Blood Pressure 120/77 Blood Pressure [Right Arm] 120/77 Blood Pressure Mean [Right Arm] 91 02 Sat by Pulse Oximetry 100 98 Oxygen Delivery Method Room Air 11/24/24 11:30 11/24/24 12:00 11/24/24 12:30 Temperature Temperature Source Pulse Rate 67 59 L 61 Pulse Rate [Right] Respiratory Rate 21 14 17 Blood Pressure 119/73 118/72 111/69 Blood Pressure [Right Arm] Blood Pressure Mean [Right Arm] 02 Sat by Pulse Oximetry 94 L 98 98 Oxygen Delivery Method Room Air Room Air Room Air 11/24/24 13:00 11/24/24 13:37 11/24/24 14:00 Temperature Temperature Source Pulse Rate 63 77 77 Pulse Rate [Right] Respiratory Rate 12 16 14 Blood Pressure 93/58 L 99/57 L 123/75 Blood Pressure [Right Arm] Blood Pressure Mean [Right Arm] 02 Sat by Pulse Oximetry 97 97 98 Oxygen Delivery Method Room Air Room Air Room Air 11/24/24 14:30 11/24/24 15:01 Temperature Temperature Source Pulse Rate 74 81 Pulse Rate [Right] Respiratory Rate 22 17 Blood Pressure 121/76 135/81 Blood Pressure [Right Arm] Blood Pressure Mean [Right Arm] 02 Sat by Pulse Oximetry 97 98 Oxygen Delivery Method Room Air Room Air Lab Data Labs: Lab Results 11/24/24 11:20: HCV Ab CONCETTA w/Rflx PCR Qn Reactive 11/24/24 11:30: WBC 6.9, RBC 3.88 L, Hgb 12.2, Hct 37.8, MCV 97.4, MCH 31.4 H, MCHC 32.3, RDW 12.5, Plt Count 303, MPV 9.4, Neut % (Auto) 57.7, Lymph % (Auto) 29.5, [place] % (Auto) 9.0, Eos % (Auto) 3.3, Baso % (Auto) 0.4, Neut # (Auto) 4.0, Lymph # (Auto) 2.0, [place] # (Auto) 0.6, Eos # (Auto) 0.2, Baso # (Auto) 0.0, D- Dimer 0.32, Sodium 142, Potassium 4.5, Chloride 112 H, Carbon Dioxide 25, Anion Gap 9.5, BUN 17, Creatinine 0.90, Estimated Creat Clear 62, Estimated GFR 63, Est GFR ( Amer) 77, Glucose 118 H, Calcium 8.9, Total Bilirubin 0.2, AST 104 H, ALT 111 H, Alkaline Phosphatase 103, Troponin I < 0.01, Total Protein 6.8, Albumin 4.0, Globulin 2.8, Albumin/Globulin Ratio 1.4 11/24/24 13:50: Troponin I < 0.01 11/24/24 11:30 11/24/24 11:30 Response Orders (Tests/Meds): ED MEDICATIONS Discontinued Medications Generic Name Dose Route Start Last Admin Trade Name Freq PRN Reason Stop Dose Admin Belladonna Alkaloids 60 ml 11/24/24 11:29 11/24/24 11:47 Belladonna Alkaloids 60 Ml Ml PO 11/24/24 11:30 60 ml ONCE ONE Administration ORDERS Category Date Time Status CXR 2 view (NOT portable) [XR chest 2V] Stat Exams 11/24/24 11:30 Completed CBC w/Auto Diff [Complete Blood Count Auto Diff] Stat Lab 11/24/24 11:30 Completed CMP [Comprehensive Metabolic Panel] Stat Lab 11/24/24 11:30 Completed D-Dimer Stat Lab 11/24/24 11:30 Completed HCV RNA PCR, Quant Stat Lab 11/24/24 11:20 Received HIV Combo Stat Lab 11/24/24 11:24 Ordered Hepatitis C Ab Qual. W/ RFX Stat Lab 11/24/24 11:20 Completed Trop I [Troponin I] Stat Lab 11/24/24 11:30 Completed Troponin I Q3H Lab 11/24/24 13:50 Completed Troponin I Q3H Lab 11/24/24 17:30 Ordered ECG Data Tracing #1: ECG Narrative: Independently interpreted by me rate is 59, rhythm is regular, axis is normal, no ST elevation anatomical contiguous leads, QTc 398. MDM Narrative Medical Decision Narrative: In summary patient is a 64-year-old female with past medical history described above who presents emergency department for evaluation of chest pain. Patient is hemodynamically stable nontoxic-appearing upon arrival, afebrile. Differential diagnosis includes ACS, noncardiac chest pain, atypical aortic dissection, among others. Workup will be conducted with hematologic labs, chest x-ray, EKG, serial troponins, D-dimer. Aspirin already administered prior to arrival. Initial workup reviewed by me, hematologic labs are nonactionable, D- dimer excludes low risk aortic dissection and pulmonary embolism. No leukocytosis or critical electrolyte abnormality or CLARE. Chest x-ray informally interpreted by me no acute lobar opacities or large pneumothorax. The patient was placed in observation status at 2:10 PM. Medical necessity for observational status is serial troponins. The patient was provided serial reevaluations and cardiac monitoring while awaiting results. Results of testing during observation remarkable for serially undetectably low troponins. Initial HCV is reactive and will reflex for definitive testing and outpatient team will assess and treat if needed. Upon repeat evaluation patient was resting comfortably in bed. Given the patient has had multiple episodes of this since her stroke is serially undetectably low troponins patient is appropriate for outpatient management at this time. 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 It is not different than normal and upon my assessment patient had a nonfocal neurologic exam. Given this diagnostic imaging was considered but will be deferred and prolonged discussion was had at bedside as to why repeat imaging in the emergency department is unlikely to be fruitful. Patient will follow-up with her neurologist later this month.
--- NOTE | 2024-11-24 11:30 | XR_ITS ---
PROCEDURE INFORMATION: Exam: XR Chest Exam date and time: 11/24/2024 11:31 AM Age: 64 years old Clinical indication: Other: Chest pain central and R sided TECHNIQUE: Imaging protocol: Radiologic exam of the chest. Views: 2 views. COMPARISON: CT ANGIO CHEST 06/09/2024 8:37 PM FINDINGS: Lungs: Unremarkable. No consolidation. Pleural spaces: Unremarkable. No pleural effusion. No pneumothorax. Heart/Mediastinum: Unremarkable. No cardiomegaly. Bones/joints: Unremarkable. IMPRESSION: No acute findings.
[2024-11-24] MEDS: BELLADONNA ALKALOIDS 60 ML ML PO (11:47)
[2024-11-24 11:59] LABS: Chloride 112 mmol/L (98-107); Potassium 4.5 mmoL/L (3.5-5.1); Sodium 142 mmol/L (136-145)
[2024-11-24 12:01] LABS: Blood Urea Nitrogen 17 mg/dl (7-17); Creatinine Clearance Estimated 62 mL/min (50-200); Estimated Glomerular Filt Rate 63 ml/min (>60); GFR (African American) 77 ML/MIN (>60)
[2024-11-24 12:02] LABS: Alanine Aminotransferase 111 U/L (12-78); Albumin/Globulin Ratio 1.4 (1.1-1.8); Alkaline Phosphatase 103 U/L (38-126); Anion Gap 9.5 mEq/L (5-15); Aspartate Amino Transferase 104 U/L (14-36); Bilirubin,Total 0.2 mg/dl (0.2-1.3); Calcium 8.9 mg/dl (8.4-10.2); Carbon Dioxide 25 mmol/L (22.0-30.0); Globulin 2.8 g/dL (1.3-3.2); Glucose 118 mg/dl (74-100); Total Protein,Serum 6.8 g/dl (6.3-8.2)
[2024-11-24 12:07] LABS: D-Dimer 0.32 ug/mL (0.0-0.5)
[2024-11-24 12:16] LABS: Basophils % 0.4 % (0.1-2.0); Eosinophils # 0.2 K/mm3 (0.0-0.4); Eosinophils % 3.3 % (0.1-12.0); Hematocrit 37.8 % (37.0-47.0); Hemoglobin 12.2 g/dL (12.2-16.2); Lymphocytes % 29.5 % (10-50); Mean Corpuscular HGB Conc 32.3 g/dL (31.8-35.4); Mean Corpuscular Hemoglobin 31.4 pg (27.0-31.2); Mean Corpuscular Volume 97.4 fl (81-99); Mean Platelet Volume 9.4 fl (7.4-10.4); Monocytes # 0.6 K/mm3 (0.1-1.0); Neutrophils % 57.7 % (37.0-80.0); Platelet Count 303 K/mm3 (142-424); Red Blood Count 3.88 M/mm3 (4.20-5.40); Red Cell Distribution Width 12.5 % (11.5-17.5); White Blood Count 6.9 K/mm3 (4.8-10.8)
[2024-11-24 12:25] LABS: Troponin I < 0.01 ng/ml (0.00-0.034)
--- NOTE | 2024-11-24 12:53 | PC.NURSE ---
CALLED FOR A DIABETIC TRAY FOR PT AT THIS TIME
[2024-11-24 13:41] LABS: Hepatitis C Ab Qual. W/ RFX REACTIVE (Negative)
[2024-11-24 14:58] LABS: Troponin I < 0.01 ng/ml (0.00-0.034)
--- NOTE | 2024-11-24 15:29 | PC.NURSE ---
Assisted to the restroom.
[2024-11-24 19:34] LABS: HIV Combo NEGATIVE (Negative)
== END 2024-11-24 15:35 | disposition home or self-care (01) ==
PROVIDERS: Emergency Provider Emergency Medicine; PCP Internal Medicine
DX: R07.9 Chest pain, unspecified (principal); R51.9 Headache, unspecified
CPT/HCPCS: 71046; 80053; 84484; 85025; 85378; 86803; 87389; 87522; 93005; 99284